=== PATIENT | male | born 1985 | race Caucasian/White ===

== ENCOUNTER 2018-02-11 01:06 | Emergency (ER) | payer OTHER ==
[2018-02-11 01:12] VITALS: BP 123/84
[2018-02-11] MEDS ORDERED: LORAZEPAM 1 MG PREPACK#4 BTL TAKEHOME ONE (02:05)
--- NOTE | 2018-02-11 02:06 | EDPHY ---
H & P Stated Complaint: DYSPNEA , ANXIETY, AND "TROUBLE CONTROLLING MY BREATHING' Time Seen by Provider: 02/11/18 01:32 HPI/ROS: Chief Complaint: Shortness of breath HPI: 32-year-old male has been having episodes of shortness of breath over the last couple of years which been getting worse over the last 4 weeks. Patient is describing episodes where he feels like he has to work extra hard to take a deep breath in and then to breathe out. Initially this is only happening to him when he was falling asleep at night but is been gotten worse is progressing over the course today. He has had extensive workup for this including CT scans of the chest, and extensive cardiac workup, chest x-rays, pulmonary consultation and pulmonary function tests and he has had a home sleep study. He is awaiting the sleep study results. Tonight he felt the sensation for 4 hr. He got no numbness and tingling is in his hands and his feet numbness around his mouth. Denies any other neurologic symptoms. No fatigue or weakness. He states he has the sensation that his diaphragm is not working however he is able to take full deep breaths in with effort. He is getting increasingly anxious about this. No cough. No fevers or chills. No leg pain or swelling or recent travel. ROS: 10 point Review of Systems is negative except as noted in the HPI. PMH: Denies Social History: No smoking, no alcohol, no recreational drug use Family History: non-contributory Physical Exam: Gen: Awake, Alert, No Distress HEENT: Nose: no rhinorrhea Eyes: PERRLA, EOMI Mouth: Moist mucosa Neck: Supple, no JVD Chest: nontender, lungs clear to auscultation Heart: S1, S2 normal, no murmur Abd: Soft, non-tender, no guarding Back: no CVA tenderness, no midline tenderness Ext: no edema, non-tender Skin: no rash Neuro: CN II-XII intact, Sensation grossly intact, Strength 5/5 in bilateral upper and lower extremities - Personal History Current Tetanus/Diphtheria Vaccine: Yes Current Tetanus Diphtheria and Acellular Pertussis (TDAP): Yes - Medical/Surgical History Hx Asthma: No Hx Chronic Respiratory Disease: No Hx Diabetes: No Hx Cardiac Disease: No Hx Renal Disease: No Hx Cirrhosis: No Hx Alcoholism: No Hx HIV/AIDS: No Hx Splenectomy or Spleen Trauma: No Other PMH: NERVE TENSION. ANXIETY - Social History Smoking Status: Never smoked Constitutional: Initial Vital Signs Temperature (C) 36.8 C 02/11/18 01:07 Heart Rate 64 02/11/18 01:07 Respiratory Rate 16 02/11/18 01:07 Blood Pressure 123/84 H 02/11/18 01:07 O2 Sat (%) 99 02/11/18 01:07 O2 Delivery Mode Room Air Allergies/Adverse Reactions: No Known Allergies Allergy (Unverified 02/11/18 01:11) Home Medications: Medication Instructions Recorded NK [No Known Home Meds] 02/11/18 Medical Decision Making ED Course/Re-evaluation: 32-year-old male presenting with worsening difficulty breathing. He has had extensive workup for this. His exam is completely unremarkable here. He does appear anxious and during my conversation with him as we discussed as he does start hyperventilating. I do not see any evidence of acute pulmonary or neurologic cause. He is quite anxious and I think that there is an underlying anxiety component. I cannot however rule out an underlying neurologic or respiratory process. He has had extensive testing including CT scans x-rays cardiology and pulmonary follow up. He has not seen a neurologist. I do not think there is any diagnostic testing which would be useful today. I will start him on some lorazepam to see if this helps. I have recommended he follow up with Neurology and pulmonology again and also consider psychiatric evaluation as well. He is actually quite amenable to this. Departure - Departure Disposition: Home, Routine, Self-Care Clinical Impression: Dyspnea Condition: Good Instructions: Lorazepam (By mouth), Dyspnea (ED) Additional Instructions: Follow up with neurologist and air transportation provider within the next week for further evaluation. You may take 1 Ativan prior to going to bed. Do not drive or operate heavy machinery while you are taking Ativan. Return to the emergency department with worsening shortness of breath, chest pain, fevers, chills, cough, or any other concerns. Referrals: Andrzej Garcia MD [Medical Doctor] - As per Instructions Dereck Romero MD [Medical Doctor] - As per Instructions
== END 2018-02-11 02:15 | disposition home or self-care (01) ==
DX: R06.00 Dyspnea, unspecified (principal)